=== PATIENT | male | born 1950 | race African-American/Black ===

== ENCOUNTER 2017-07-01 09:53 | Inpatient (IN) | payer MEDICARE ==
[~2017-07-01] VITALS: Ht 170.2 cm; Wt 59.0 kg
[2017-07-01] MEDS ORDERED: BISCOLAX10 MG RC (10:04)
[2017-07-01] MEDS ORDERED: MORPHINE SULFAT30 M9 PO (10:06)
[2017-07-01] MEDS ORDERED: MAGNESIUM OXID400 M1 ORAL (10:06)
[2017-07-01] MEDS ORDERED: LIDOCAINE700 M1 TP (10:06)
[2017-07-01] MEDS ORDERED: DOCUSATE SODIU100 MG ORAL (10:06)
[2017-07-01] MEDS ORDERED: HEPARIN SO5000 UNIT2 SUBQ (10:06)
[2017-07-01] MEDS ORDERED: NORVASC5 MG ORAL (10:09)
[2017-07-01] MEDS ORDERED: TEMAZEPAM7.5 MG ORAL (10:09)
[2017-07-01] MEDS ORDERED: PRO-STAT LIQUID30 ML ORAL (10:09)
[2017-07-01] MEDS ORDERED: PANTOPRAZOLE SO40 MG ORAL (10:09)
[2017-07-01] MEDS ORDERED: NORCO 10-325 T1 EACH ORAL (10:09)
[2017-07-01] MEDS ORDERED: ZOFRAN4 M3 ORAL (10:09)
[2017-07-01] MEDS ORDERED: SENNA8.6 M2 PO (10:09)
[2017-07-01 10:19] VITALS: BP 107/68
[2017-07-01 10:45] LABS: BASOPHILS % (AUTO) 0.6 % (0.0-2.0); HEMATOCRIT 26.6 % (42.0-52.0); HEMOGLOBIN 8.3 G/DL (14.2-18.0); LYMPHOCYTES % (AUTO) 11.2 % (20.0-45.0); MEAN CORPUSCULAR VOLUME 84 FL (80-99); MONOCYTES % (AUTO) 8.8 % (1.0-10.0); NEUTROPHILS % (AUTO) 75.3 % (45.0-75.0); PLATELET COUNT 425 K/UL (150-450); RED BLOOD COUNT 3.16 M/UL (4.70-6.10); RED CELL DISTRIBUTION WIDTH 14.2 % (11.6-14.8); WHITE BLOOD COUNT 11.9 K/UL (4.8-10.8)
[2017-07-01] MEDS ORDERED: Morphine Sulfate 4mg/ml Inj IVP ONE (10:45)
[2017-07-01 10:50] LABS: BILIRUBIN, URINE 1+ (NEGATIVE); GLUCOSE, URINE (UA) NEGATIVE (NEGATIVE); KETONES,URINE NEGATIVE (NEGATIVE); LEUKOCYTE ESTERASE ,URINE 1+ (NEGATIVE); NITRITE,URINE NEGATIVE (NEGATIVE); PH,URINE 6 (4.5-8.0); PROTEIN,URINE 2+ (NEGATIVE); UROBILINOGEN,URINE 4 MG/DL (0.0-1.0)
[2017-07-01 10:57] LABS: APPEARANCE,URINE SLIGHTLY CLOUDY; COLOR,URINE YELLOW
[2017-07-01 11:00] LABS: INR 1.4 (0.9-1.1)
[2017-07-01 11:09] LABS: ANION GAP 10 mmol/L (5-15); BLOOD UREA NITROGEN 17 mg/dL (7-18); CALCIUM 7.2 MG/DL (8.5-10.1); CARBON DIOXIDE 21 MMOL/L (21-32); CHLORIDE 106 MMOL/L (98-107); CREATININE 0.9 MG/DL (0.55-1.30); POTASSIUM 3.3 MMOL/L (3.5-5.1); SODIUM 137 MMOL/L (136-145)
[2017-07-01 11:22] LABS: ALANINE AMINOTRANSFERASE 23 U/L (12-78); ALBUMIN 1.3 G/DL (3.4-5.0); ALBUMIN/GLOBULIN RATIO 0.3 (1.0-2.7); ALKALINE PHOSPHATASE 336 U/L (46-116); ASPARTATE AMINO TRANSFERASE 18 U/L (15-37); BILIRUBIN,TOTAL 0.5 MG/DL (0.2-1.0); CKMB < 0.5 NG/ML (0.0-3.6); CREATINE KINASE 20 U/L (26-308)
--- NOTE | 2017-07-01 11:56 | Diagnostic Imaging Report ---
Indication: Chest pain Technique: One view of the chest Comparison: none Findings: Patient is rotated to the right. Lungs and pleural spaces are clear. The heart size is normal. The aorta is tortuous and ectatic Impression: No acute process
[2017-07-01 11:57] VITALS: BP 115/62
--- NOTE | 2017-07-01 14:17 | Emergency Room Report ---
History of Present Illness General Chief Complaint: Chest Pain Source: Patient, Family Member Present Illness HPI Patient presents with chest pain. He is reported it as chest pressure. He was transported by paramedics. They gave him aspirin in the field with some improvement. This has developed recently over the past few days. He rates it 10/10. It is associated with anxiety and some nausea. 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 He recently was at [facility] for several weeks with daily blood draws. According to his records in April his hemoglobin was 11. His reports that he's been quite pale. He denies any vomiting or diarrhea. He does not have a productive cough and has dyspnea. The patient's undergoing radiation therapy to the bone in his hip. He states his last dose was to be today. He has weakness of his L leg. Patient has extremely poor appetite at this time. He has no medication to help him with nausea. He's been taking MS Contin 90 mg. The pain is more in his back and leg. This is different from the chest pain that he has been experiencing. At the facility where he is, it is unclear how he will be able to get to follow up appointments as he is no longer ambulatory Allergies: Coded Allergies: No Known Allergies (Unverified , 07/01/17) Patient History Past Medical History: see triage record Social History: Denies: smoking, alcohol use Social History Narrative born in [facility] - Reviewed Nursing Documentation: PMH: Agreed; PSxH: Agreed Nursing Documentation-PMH Hx Hypertension: Yes Hx Cancer: Yes - bone, liver, intrahepatic bile duct, skin Review of Systems All Other Systems: negative except mentioned in HPI Physical Exam Vital Signs Date Time Temp Pulse Resp B/P (MAP) Pulse Ox O2 Delivery O2 Flow Rate FiO2 07/01/17 09:40 98.1 139 18 129/77 98 Room Air 98.1 Sp02 EP Interpretation: reviewed, normal General Appearance: no apparent distress, GCS 15, thin, Chronically Ill Head: normocephalic Eyes: bilateral eye PERRL, bilateral eye conjunctivae pale ENT: moist mucus membranes Neck: supple Respiratory: lungs clear, normal breath sounds Cardiovascular #1: regular rate, rhythm Cardiovascular #2: 2+ radial (R) Gastrointestinal: normal inspection, normal bowel sounds, non tender, no mass, non-distended Rectal: heme negative stool Musculoskeletal: back normal, normal range of motion Neurologic: alert, oriented x3, sensory intact, motor weakness - L leg Psychiatric: depressed affect Skin: normal inspection, warm/dry, pallor, other - radiation targets Medical Decision Making Diagnostic Impression: Primary Impression: Chest pain Qualified Codes: R07.9 - Chest pain, unspecified Additional Impressions: Anemia Qualified Codes: D50.8 - Other iron deficiency anemias Bone cancer Qualified Codes: C40.22 - Malignant neoplasm of long bones of left lower limb ER Course The patient presents with chest pain and tachycardia. Differential includes acute coronary syndrome, acute myocardial infarction, pulmonary embolus sepsis, costochondritis, tumor spread amongst others. The patient is evaluated with EKG , chest x-ray and labs. The patient will receive IV hydration. He is afebrile here and imparted differential is a consideration for sepsis. The patient will be treated for pain. He had received aspirin in the field. EKG shows sinus tachycardia with nonspecific ST-T wave changes no evidence of ischemia. Chest x-ray is unremarkable. Lab is significant for anemia and leukocytosis. Patient still with tachycardia. As has had chest pain, concern over anemia contributing to ACS. Will transfuse him. Also, pain treated here. As tachycardic, not stable to transfer at this time. Admit telemetry - Dr. Cedeno. Laboratory Tests Test 07/01/17 10:00 White Blood Count 11.9 K/UL (4.8-10.8) H Red Blood Count 3.16 M/UL (4.70-6.10) L Hemoglobin 8.3 G/DL (14.2-18.0) L Hematocrit 26.6 % (42.0-52.0) L Mean Corpuscular Volume 84 FL (80-99) Mean Corpuscular Hemoglobin 26.1 PG (27.0-31.0) L Mean Corpuscular Hemoglobin Concent 31.1 G/DL (32.0-36.0) L Red Cell Distribution Width 14.2 % (11.6-14.8) Platelet Count 425 K/UL (150-450) Mean Platelet Volume 5.0 FL (6.5-10.1) L Neutrophils (%) (Auto) 75.3 % (45.0-75.0) H Lymphocytes (%) (Auto) 11.2 % (20.0-45.0) L Monocytes (%) (Auto) 8.8 % (1.0-10.0) Eosinophils (%) (Auto) 4.0 % (0.0-3.0) H Basophils (%) (Auto) 0.6 % (0.0-2.0) Prothrombin Time 14.7 SEC (9.30-11.50) H Prothrombin Time INR 1.4 (0.9-1.1) H PTT 49 SEC (23-33) H Urine Color Yellow Urine Appearance Slightly cloudy Urine pH 6 (4.5-8.0) Urine Specific [place] 1.015 (1.005-1.035) Urine Protein 2+ (NEGATIVE) H Urine Glucose (UA) Negative (NEGATIVE) Urine Ketones Negative (NEGATIVE) Urine Occult Blood Negative (NEGATIVE) Urine Nitrite Negative (NEGATIVE) Urine Bilirubin 1+ (NEGATIVE) H Urine Ictotest Negative Urine Urobilinogen 4 MG/DL (0.0-1.0) H Urine Leukocyte Esterase 1+ (NEGATIVE) H Urine RBC 0-2 /HPF (0 - 0) H Urine WBC 2-4 /HPF (0 - 0) Urine Squamous Epithelial Cells Occasional /LPF Urine Bacteria Few /HPF (NONE) Sodium Level 137 MMOL/L (136-145) Potassium Level 3.3 MMOL/L (3.5-5.1) L Chloride Level 106 MMOL/L (98-107) Carbon Dioxide Level 21 MMOL/L (21-32) Anion Gap 10 mmol/L (5-15) Blood Urea Nitrogen 17 mg/dL (7-18) Creatinine 0.9 MG/DL (0.55-1.30) Estimate Glomerular Filtration Rate > 60 mL/min (>60) Glucose Level 87 MG/DL (74-106) Lactic Acid Level 1.40 mmol/L (0.66-2.22) Calcium Level 7.2 MG/DL (8.5-10.1) L Total Bilirubin 0.5 MG/DL (0.2-1.0) Aspartate Amino Transferase (AST) 18 U/L (15-37) Alanine Aminotransferase (ALT) 23 U/L (12-78) Alkaline Phosphatase 336 U/L (46-116) H Total Creatine Kinase 20 U/L (26-308) L Creatine Kinase MB < 0.5 NG/ML (0.0-3.6) Creatine Kinase MB Relative Index 2.5 Troponin I 0.000 ng/mL (0.000-0.056) Pro-B-Type Natriuretic Peptide 260 pg/mL (0-125) H Total Protein 5.5 G/DL (6.4-8.2) L Albumin 1.3 G/DL (3.4-5.0) L Globulin 4.2 g/dL Albumin/Globulin Ratio 0.3 (1.0-2.7) L EKG Diagnostic Results Rate: tachycardiac Rhythm: NSR ST Segments: no acute changes Rhythm Strip Diag. Results EP Interpretation: yes Rhythm: no PVC's, no ectopy, other - Sinus tachycardia Chest X-Ray Diagnostic Results Chest X-Ray Diagnostic Results : Chest X-Ray Ordered: Yes Indication: Chest Pain EP Interpretation: Yes Interpretation: no consolidation, no effusion, no pneumothorax Impression: Other Electronically Signed by: Electronically signed by Lm Dodge MD Status: improved Disposition: ADMITTED INPATIENT Condition: Serious Referrals: NON PHYSICIAN (PCP) Lm Dodge M.D. July 01, 2017 14:17
[2017-07-01 15:49] VITALS: BP 122/64
--- NOTE | 2017-07-01 18:22 | History & Physical ---
History and Physical History & Physicial metastatic [employer] carcinoma to bones, liver, kidneys uncontrolled pain see orders dict Francisco Cedeno MD July 01, 2017 18:22
[2017-07-01 20:00] VITALS: BP 143/79
--- NOTE | 2017-07-01 20:30 | History and Physical Report ---
DATE OF ADMISSION: 07/01/2017 HISTORY OF PRESENT ILLNESS: The patient was transferred here from a nearby senior living because of uncontrolled pain. He was hospitalized about 6 weeks ago with pain in the left hip and was found to have squamous cell carcinoma with unknown primary. 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 He is known to have metastatic disease to the liver, kidneys, and bones. His pain is unremitting in the left chest, abdomen, and both hips. He has recently been receiving radiation therapy. He has been on MS Contin and [place] without relief. 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 CODE STATUS: No code according to the patient's discussion with me today. He states that he has signed a POLST to this affect, but this was not transmitted with him to this facility. MEDICATIONS: Norvasc, laxatives, heparin, [place] 10/325, MS Contin 30 mg every 12 hours, Zofran, Protonix, and Restoril. ALLERGIES: None. SOCIAL HISTORY: He does not drink or smoke. PHYSICAL EXAMINATION: GENERAL: The vital signs are normal. He appears to be in some distress due to pain. HEENT: Head is normocephalic. NECK: No jugular venous distention. Lymph nodes are not enlarged. CHEST: Clear. CARDIAC: Rhythm is regular. ABDOMEN: Soft and nontender. Liver and spleen are not enlarged. EXTREMITIES: No clubbing, cyanosis, or edema. ASSESSMENT: 1. Uncontrolled pain. 2. 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 3. Metastases to kidneys, liver, and bones. 4. Anemia. 5. Hypertension. PLAN: The patient will be given additional pain medication including higher doses of morphine, Percocet, and morphine injectable as needed. When his pain is controlled, he will be transferred back to his nursing facility to complete his radiation therapy. Francisco Cedeno M.D. DR: DIANA JOB#: [id number] CC:
[2017-07-01] MEDS ORDERED: MS Contin 15mg tab ORAL SCH (21:00)
[2017-07-01] MEDS: MS Contin 15mg tab ORAL SCH (21:41)
[2017-07-01] MEDS: Heparin 5000 units/ml inj SUBQ SCH (21:47)
[2017-07-02] VITALS: BP 126/72
[2017-07-02 04:00] VITALS: BP 123/65
[2017-07-02] MEDS: MS Contin 15mg tab ORAL SCH ×3 (05:45→23:32)
[2017-07-02 07:45] LABS: BASOPHILS % (AUTO) 0.5 % (0.0-2.0); EOSINOPHILS % (AUTO) 5.7 % (0.0-3.0); HEMOGLOBIN 8.6 G/DL (14.2-18.0); LYMPHOCYTES % (AUTO) 6.3 % (20.0-45.0); MEAN CORPUSCULAR VOLUME 84 FL (80-99); MONOCYTES % (AUTO) 7.4 % (1.0-10.0); NEUTROPHILS % (AUTO) 80.1 % (45.0-75.0); PLATELET COUNT 366 K/UL (150-450); RED BLOOD COUNT 3.23 M/UL (4.70-6.10); RED CELL DISTRIBUTION WIDTH 14.2 % (11.6-14.8)
[2017-07-02 07:59] VITALS: BP 127/69
[2017-07-02 08:11] LABS: ALANINE AMINOTRANSFERASE 25 U/L (12-78); ALBUMIN 1.7 G/DL (3.4-5.0); ALBUMIN/GLOBULIN RATIO 0.3 (1.0-2.7); ALKALINE PHOSPHATASE 403 U/L (46-116); ANION GAP 10 mmol/L (5-15); ASPARTATE AMINO TRANSFERASE 26 U/L (15-37); BILIRUBIN,TOTAL 0.5 MG/DL (0.2-1.0); BLOOD UREA NITROGEN 16 mg/dL (7-18); CARBON DIOXIDE 24 MMOL/L (21-32); CHLORIDE 101 MMOL/L (98-107); CREATININE 0.9 MG/DL (0.55-1.30); POTASSIUM 3.9 MMOL/L (3.5-5.1); SODIUM 135 MMOL/L (136-145)
[2017-07-02] MEDS ORDERED: Docusate 100mg cap ORAL SCH (09:00)
[2017-07-02] MEDS: Heparin 5000 units/ml inj SUBQ SCH ×2 (09:02→21:40)
[2017-07-02 12:00] VITALS: BP 138/73
--- NOTE | 2017-07-02 13:06 | General Progress Note ---
Assessment/Plan Assessment/Plan 1. Uncontrolled pain. 2. Metastatic squamous cell nasopharyngeal carcinoma 3. Metastases to kidneys, liver, and bones. 4. Anemia. 5. Hypertension. less pain on increased narcotics no IV Morphine needed labs ok dc tomorrow if stable Subjective Constitutional: Reports: malaise, weakness, other - less pain; Denies: chills, diaphoresis, fever Allergies: Coded Allergies: No Known Allergies (Unverified , 07/01/17) Objective Last 24 Hour Vital Signs Date Time Temp Pulse Resp B/P (MAP) Pulse Ox O2 Delivery O2 Flow Rate FiO2 07/02/17 09:01 104 127/69 07/02/17 08:00 101 07/02/17 07:59 98.2 104 20 127/69 98 Room Air 98.2 07/02/17 04:00 96 07/02/17 04:00 97.0 94 22 123/65 98 Room Air 97.0 07/02/17 00:00 97.3 92 20 126/72 99 Room Air 97.3 07/02/17 00:00 94 07/01/17 20:00 112 07/01/17 20:00 96.6 104 20 143/79 97 Room Air 96.6 07/01/17 16:50 97.5 97 20 122/64 97 07/01/17 15:49 97.5 97 20 122/64 99 Room Air 97.5 07/01/17 15:49 97.5 97 28 97.5 Intake and Output 07/01/17 07/02/17 19:00 07:00 Intake Total 1000 ml Output Total 200 ml 0 ml Balance 800 ml 0 ml Intake Oral 0 ml IV Total 1000 ml Output Urine Total 200 ml 0 ml # Voids 2 Laboratory Tests 07/02/17 07:05: White Blood Count 8.0, Red Blood Count 3.23L, Hemoglobin 8.6L, Hematocrit 27.0L , Mean Corpuscular Volume 84, Mean Corpuscular Hemoglobin 26.5L, Mean Corpuscular Hemoglobin Concent 31.7L, Red Cell Distribution Width 14.2, Platelet Count 366, Mean Platelet Volume 5.0L, Neutrophils (%) (Auto) 80.1H, Lymphocytes (%) (Auto) 6.3L, Monocytes (%) (Auto) 7.4, Eosinophils (%) (Auto) 5.7H, Basophils (%) (Auto) 0.5, Sodium Level 135L, Potassium Level 3.9, Chloride Level 101, Carbon Dioxide Level 24, Anion Gap 10, Blood Urea Nitrogen 16, Creatinine 0.9, Estimat Glomerular Filtration Rate > 60, Glucose Level 95, Calcium Level 9.0#, Total Bilirubin 0.5, Aspartate Amino Transf (AST/SGOT) 26, Alanine Aminotransferase (ALT/SGPT) 25, Alkaline Phosphatase 403H, Total Protein 6.9, Albumin 1.7L, Globulin 5.2, Albumin/Globulin Ratio 0.3L, Carcinoembryonic Antigen [Pending] Height (Feet): 5 Height (Inches): 7.00 Weight (Pounds): 130 General Appearance: no apparent distress Francisco Cedeno MD July 02, 2017 13:05
[2017-07-02] MEDS: Metoprolol Succinate XL 25mg tab ORAL SCH ×2 (15:14→17:50)
[2017-07-02 16:00] VITALS: BP 115/69
[2017-07-02] MEDS: Docusate 250mg cap ORAL SCH (17:50)
[2017-07-02 20:00] VITALS: BP 120/72
[2017-07-03] VITALS: BP 136/81
[2017-07-03 04:00] VITALS: BP 121/76
[2017-07-03] MEDS: MS Contin 15mg tab ORAL SCH (06:36)
[2017-07-03 08:00] VITALS: BP 118/68
[2017-07-03] MEDS: Docusate 250mg cap ORAL SCH ×2 (08:44→18:31)
[2017-07-03] MEDS: Metoprolol Succinate XL 25mg tab ORAL SCH ×2 (08:50→18:31)
[2017-07-03] MEDS: Heparin 5000 units/ml inj SUBQ SCH (08:52)
[2017-07-03 12:00] VITALS: BP 132/72
--- NOTE | 2017-07-03 12:48 | Cardiology Report ---
APPROVED REPORT EKG Measurement Heart [id number] Sinus tachycardia Nonspecific T wave abnormality Abnormal ECG
[2017-07-03] MEDS ORDERED: MS Contin 15mg tab ORAL SCH (14:15)
[2017-07-03] MEDS ORDERED: HYDROmorphone 4mg tab ORAL PRN (14:45)
--- NOTE | 2017-07-03 14:51 | General Progress Note ---
Assessment/Plan Assessment/Plan 1. Uncontrolled pain. 2. Metastatic squamous cell nasopharyngeal carcinoma 3. Metastases to kidneys, liver, and bones. 4. Anemia. 5. Hypertension. in severe pain on increased narcotics not able to tolerate it increased narcotics advised IV morphine drip he will discuss with family discussed w insurance MD advisor Subjective Constitutional: Reports: other - pain Allergies: Coded Allergies: No Known Allergies (Unverified , 07/01/17) Objective Last 24 Hour Vital Signs Date Time Temp Pulse Resp B/P (MAP) Pulse Ox O2 Delivery O2 Flow Rate FiO2 07/03/17 12:00 93 07/03/17 12:00 98.4 95 20 132/72 97 Room Air 98.4 07/03/17 08:50 93 120/70 07/03/17 08:50 93 120/70 07/03/17 08:00 97 07/03/17 08:00 98.0 93 20 118/68 97 Room Air 98.0 07/03/17 04:00 91 07/03/17 04:00 97.7 94 20 121/76 98 Room Air 97.7 07/03/17 00:00 97.0 90 20 136/81 95 Room Air 97.0 07/03/17 00:00 81 07/02/17 20:00 81 07/02/17 20:00 97.7 84 20 120/72 98 Room Air 97.7 07/02/17 17:50 89 115/69 07/02/17 16:00 96.3 89 20 115/69 96 Room Air 96.3 07/02/17 16:00 90 07/02/17 15:14 121 138/73 Intake and Output 07/02/17 07/03/17 19:00 07:00 Intake Total 390 ml 275 ml Output Total 450 ml Balance -60 ml 275 ml Intake Oral 390 ml 275 ml Output Urine Total 450 ml # Voids 2 # Bowel Movements 1 1 Height (Feet): 5 Height (Inches): 7.00 Weight (Pounds): 130 General Appearance: severe distress Cardiovascular: normal rate Francisco Cedeno MD July 03, 2017 14:51
[2017-07-03 16:00] VITALS: BP 124/75
[2017-07-03 18:31] VITALS: BP 124/75
[2017-07-03] MEDS ORDERED: METOPROLOL SUCC25 MG ORAL ×3 (20:11→20:13)
[2017-07-03] MEDS ORDERED: DOCUSATE S50 MG/5 ML PO (20:11)
--- NOTE | 2017-07-06 08:59 | Discharge Summary ---
Discharge Summary Discharge Summary Discharge Summary DATE OF ADMISSION: 07/01/2017 DATE OF DISCHARGE: 07/03/2017 REASON FOR ADMISSION: 67 years old male with past medical history significant for hypertension, anemia , metastatic nasopharyngeal carcinoma to bone , liver and kidneys, constipation , protein calorie malnutrition, was brought to emergency room for evaluation from the care home [facility] for uncontrolled pain. Patient was hospitalized about 6 weeks ago with left hip pain and found to have squamous cell carcinoma. Additional testing at that time revealed most likely primary cause was nasopharyngeal carcinoma. Patient with known metastatic disease to the liver, kidneys and bones. Pain was unremitting and felt in the left chest, abdomen and both hips. Patient was receiving radiation therapy. Patient was on MS Contin and [place] at SNF without significant relief. Upon evaluation in emergency room troponin was negative. EKG revealed sinus tachycardia with heart rate 139. Chest x-ray revealed no acute cardiopulmonary pathology. Patient exhibited mild leukocytosis 11.9 and evidence of anemia with hemoglobin 8.3 and hematocrit 26.6. Urinalysis was negative for evidence for UTI. Lactic acid w 1.4. LFT were within normal limits. Potassium 3.3. Patient was admitted for pain management with diagnosis of uncontrolled pain, metastatic nasopharyngeal carcinoma, metastasis to kidneys liver and bones, anemia, hypertension. HOSPITAL COURSE: Patient admitted to telemetry floor. Pain medication regimen was optimized, including intravenous morphine and Percocet. Patient DNR/DNI status. Potassium replaced. Hemoglobin and hematocrit closely monitored, remained at the baseline. Blood pressure was managed with current regimen of calcium channel angy and beta angy, and remained stable. DVT and GI prophylaxis provided. Bowel regimen instituted. Leukocytosis resolved, blood culture negative. Family was advised on comfort measures. Patient was stable for transfer back to care home [facility] FINAL DIAGNOSES: Uncontrolled pain Metastatic squamous cell nasopharyngeal carcinoma Metastasis to kidneys, liver and bones. Anemia Hypertension DISCHARGE MEDICATIONS: See Medication Reconciliation list. DISCHARGE INSTRUCTIONS: Patient was discharged to care home [facility], follow-up with health care provider at the facility I have been assigned to dictate discharge summary for this account. I was not involved in the patient's management. Teresita Chua NP July 06, 2017 08:59
== END 2017-07-03 20:45 | DRG 948 ==
LOC: EDBD 09:53 → EMR 11:05 → EDBEDREQ 12:01 → 2E 12:17 → EDBEDREQ 13:38
PROC: 30233N1 Transfusion of Nonautologous Red Blood Cells into Peripheral Vein, Percutaneous Approach (ICD-10-PCS; principal; 2017-07-01)
DX: G89.3 Neoplasm related pain (acute) (chronic) (principal); C78.7 Secondary malignant neoplasm of liver and intrahepatic bile duct; C79.51 Secondary malignant neoplasm of bone; C11.9 Malignant neoplasm of nasopharynx, unspecified; D64.9 Anemia, unspecified; I10 Essential (primary) hypertension; Z92.3 Personal history of irradiation; Z66 Do not resuscitate
CPT/HCPCS: 36415; 71045; 80053; 81003; 82378; 82550; 82553; 83605; 83880; 84484; 85025; 85610; 85730; 86850; 86900; 86901; 86920; 87040; 87081; 93005; 99285; J2405